=== PATIENT | female | born 1965 ===

== ENCOUNTER 2022-11-28 10:29 | Outpatient (CLI) | payer OTHER ==
[~2022-11-28 10:29] MED LIST: METHOCARBAMOL750 MG PO
== END 2022-11-28 12:56 | disposition home or self-care (01) ==
LOC: SONOGRAMA 10:29
PROVIDERS: ATTEND Orthopaedic Surgery
DX: D21.12 Benign neoplasm of connective and other soft tissue of left upper limb, including shoulder (principal); M21.70 Unequal limb length (acquired), unspecified site; M79.672 Pain in left foot; M67.874 Other specified disorders of tendon, left ankle and foot